=== PATIENT | female | born 1995 | race Caucasian/White ===

== ENCOUNTER 2019-03-24 09:00 | Emergency (ER) | payer OTHER, SELFPAY ==
[2019-03-24 09:05] VITALS: BP 121/66; PULSE 102; RESP 16; TEMP 36.9; O2SAT 100
--- NOTE | 2019-03-24 09:21 | ED.PSYCH ---
HPI - Psych General Chief Complaint: Psychiatric Symptoms Stated Complaint: evaluation Time Seen by Provider: 03/24/19 09:05 Source: patient and EMS Mode of arrival: EMS Limitations: no limitations History of Present Illness HPI Narrative: Ethel is a 23-year-old female patient. She presents to the emergency room by ambulance from her mother's home. The history is from the patient as well as from EMS. The patient was apparently with her boyfriend. She states that he can't drive out and she went to her mother's place. She has been using IV meth and also has been using fentanyl Says she snorted fentanyl and used IV meth She is not very clear about the exact time of use, vaguely says she used two buttons of fentanyl sometime this morning Meth use was 2 or 3 days ago She has a history of psychiatric problems. She has a diagnosis of PTSD, bipolar disorder, anxiety, depression. She saw Dr. Anthony Tong in [place], [place] about 3 days ago. She has been hospitalized in psychiatric institution in the past and she is not very clear about exactly when this was. She has no physical complaints. She states that she is hungry and wants to eat. Denies nausea vomiting, abdominal pain chest pain cough fever . She apparently had expressed suicidal as well as homicidal ideation to EMS. she has not actually hurt anyone. She has not not actually tried to hurt herself either. However she has ideation. MD complaint: suicidal ideation and feels depressed Onset (ago): day(s) ( See HPI narrative) Duration: constant History of same: Yes Relieving factors: none Exacerbating factors: other ( unknown) Context: recent drug abuse and other ( see HPI narrative) Associated psychiatric symptoms: depression, suicidal ideation and homicidal ideation Associated symptoms: other ( Denies headache. Denies shortness of breath. There is no abdominal pain. No nausea or vomiting. Denies dizziness.) Treatments prior to arrival: none If self harm: admits thoughts of self harm Details of plan: No plan Related Data Home Medications Medication Instructions Recorded Confirmed clonazepam [Klonopin] 1 mg PO HS 03/24/19 03/24/19 dextroamphetamine-amphetamine 20 mg PO BID 03/24/19 03/24/19 [Adderall] ziprasidone HCl [Geodon] 20 mg PO BID 03/24/19 03/24/19 Allergies Allergy/AdvReac Type Severity Reaction Status Date / Time Penicillins Allergy Unknown Verified 03/24/19 09:33 Review of Systems Review of Systems: All systems reviewed & are unremarkable except as noted in HPI and below Constitutional: Constitutional: Reports as per HPI, Reports no additional constitutional complaints, Denies chills and Denies fever(s) Eyes: Eyes: Reports as per HPI, Denies change in vision and Denies photophobia ENT: Reports system reviewed and no additional complaints, except as documented, Denies dysphagia, Denies vertigo, Denies dizziness, Denies nasal congestion and Denies sore throat Cardiovascular: Cardiovascular: Reports as per HPI, Reports no additional cardiovascular complaints, Denies chest pain and Denies radiating jaw, neck or arm pain Respiratory: Respiratory: Reports as per HPI, Reports no additional respiratory complaints, Denies chest congestion, Denies cough, Denies dyspnea and Denies wheezing Gastrointestinal: Gastrointestinal: Reports as per HPI, Reports no additional gastrointestinal complaints, Denies abdominal pain, Denies diarrhea, Denies nausea and Denies vomiting Comments: Ethel is hungry and wants to eat Genitourinary: Genitourinary: Reports no additional female genitourinary complaints, Denies hematuria and Denies dysuria Musculoskeletal: Musculoskeletal: Reports no additional musculoskeletal complaints, Denies back pain and Denies muscle cramps Integumentary/Breasts: Skin/Breast: Reports system reviewed and no additional complaints, except as docu and Reports rash Comments: has some rashes on face which are chronic according to her Ne
--- NOTE | 2019-03-24 09:35 | ECG_ITS ---
Measurements Intervals Talent Rate: 81 P: 92 NH: 149 QRS: 66 QRSD: 90 T: 43 QT: 387 QTc: 450 Interpretive Statements SINUS RHYTHM MINIMAL Q WAVES- INFERIOR LEADS BASELINE ARTIFACT- AVL, V6 BORDERLINE ECG Electronically Signed On 03-24-2019 11:29:16 MOTOR COACH DRIVER by Ed Boogie D.O.
[2019-03-24 09:39] LABS: Basophils Absolute Auto 0.05 K/mm3 (0.00-0.10); Basophils Percent Auto 0.4 % (0.0-1.0); Eosinophils Absolute Auto 0.22 K/mm3 (0.02-0.50); Eosinophils Percent Auto 1.9 % (1.0-6.0); Hematocrit 40.6 % (35.0-49.0); Hemoglobin 13.6 g/dL (12.0-15.0); Immature Granulocyte Absolute 0.02 K/mm3 (0.00-0.00); Immature Granulocyte Percent A 0.2 % (0.0-0.0); Mean Corpuscular HGB Conc 33.5 g/dL (32.0-36.0); Mean Corpuscular Hemoglobin 29.4 pg (27.0-31.0); Mean Corpuscular Volume 87.9 fL (78.0-102.0); Mean Platelet Volume 9.7 fl (9.2-11.8); Monocytes Absolute Auto 0.65 K/mm3 (0.10-0.90); Monocytes Percent Auto 5.6 % (2.0-11.0); Neutrophils Absolute Auto 6.7 K/mm3 (1.7-7.2); Neutrophils Percent Auto 56.9 % (50.0-70.0); Platelet Count Result 205 K/mm3 (150-420); Red Blood Count 4.62 M/mm3 (4.20-5.40); Red Cell Distribution Width 11.9 % (11.6-14.4); White Blood Count 11.7 K/mm3 (4.8-10.8)
[2019-03-24 09:50] LABS: Prothrombin Time 10.4 Seconds (9.64-11.0)
[2019-03-24 10:02] LABS: Alanine Aminotransferase 109 U/L (14-59); Albumin Level 3.6 g/dL (3.4-5.0); Alkaline Phosphatase 53 U/L (46-116); Anion Gap 12.5 mmol/L (7-16); Aspartate Amino Transferase 47 U/L (15-37); Bilirubin,Total 0.2 mg/dL (0.00-1.00); Blood Urea Nitrogen 9 mg/dL (7-18); Calcium 8.9 mg/dL (8.5-10.1); Carbon Dioxide 29 mmol/L (21-32); Chloride 103 mmol/L (98-108); Estimated CRCL calculation 79 ml/min; Estimated Glomerular Filt Rate > 60; Glucose 76 mg/dL (70-99); Magnesium 1.5 mg/dL (1.8-2.4); Osmolality Calculated 289 mOsm/kg (285-295); Potassium 3.5 mmol/L (3.5-5.1); Salicylate 1.5 mg/dL (2.8-20.0); Sodium 141 mmol/L (136-145); Thyroid Stimulating Hormone 1.95 uIU/mL (0.36-3.74); Total Protein 7.6 g/dL (6.4-8.2)
[2019-03-24 10:03] LABS: Ethanol < 3 mg/dL (0-6)
[2019-03-24 10:04] LABS: Acetaminophen 0 ug/mL (10-30)
--- NOTE | 2019-03-24 10:10 | PC.NURSE ---
Pt. eating breakfast tray.
[2019-03-24] MEDS: NICOTINE (*PBKC) 14 MG PATCH 1 PATCH TRANSDERM (10:14)
[2019-03-24 10:27] LABS: Add Urine Microscopic? NO; Appearance Urine Clear (Clear); Bilirubin Urine Negative (Negative); Blood Urine Negative (Negative); Color Urine Yellow (Yellow); Glucose Urine UA Negative (Negative); Ketones Urine Negative (Negative); Leukocyte Esterase Ur Negative LEU/UL (Negative); Nitrate Urine Negative (Negative); Protein Urine Negative (Negative); Urobilinogen Urine 0.2 mg/dL (0.2-1.0)
--- NOTE | 2019-03-24 10:29 | PC.NURSE ---
Call placed to [facility] for mental health eval and consult. Report given to Carmen, will send counselor when available.
[2019-03-24 10:32] LABS: Pregnancy On Board Control Negative; Urine Pregnancy Test Negative
[2019-03-24 10:36] LABS: Amphetamine Screen Urine Positive (Negative); Barbiturate Screen Urine Negative (Negative); Benzodiazepines Screen Urine Negative (Negative); Cannabinoid Screen Urine Negative (Negative); Cocaine Screen Urine Negative (Negative); Methadone Screen Urine Negative (Negative); Opiate Screen Urine Negative (Negative); Phencyclidine Screen Urine Negative (Negative)
--- NOTE | 2019-03-24 10:43 | PCDIET ---
Pt. resting c lights off, sitter at bedside. Report given to Veronica Ford
--- NOTE | 2019-03-24 11:00 | PC.NURSE ---
PT CARE IS ASSUMED AT THIS TIME. PT IS SLEEPING, SITTER AT BEDSIDE.
--- NOTE | 2019-03-24 13:00 | PC.NURSE ---
[facility] SENIOR MANAGEMENT CONSULTANT AT BEDSIDE FOR INTERVIEW
[2019-03-24 13:10] VITALS: BP 112/68; PULSE 82; RESP 14; O2SAT 98
--- NOTE | 2019-03-24 13:58 | PC.NURSE ---
PT HAS BEEN RELEASED FROM [facility] TO HOME WITH SAFETY PLAN. MOTHER MINNIE CALLED AND SHE WILL BE HERE TO EXTENSION COURSE COUNSELOR AT 5 PM [phone]
[2019-03-24 15:35] VITALS: BP 107/69; PULSE 81; RESP 16; O2SAT 98
[2019-03-26 12:56] LABS: HIV 1 P24 AG Negative (Negative); HIV 1/2 AB Negative (Negative)
[2019-03-31 04:31] LABS: Hepatitis B Surface Antigen Nonreactive (Nonreactive); Hepatitis C Additional Testing Has been added; Hepatitis C Virus Antibody Reactive (Nonreactive)
[2019-04-01 20:26] LABS: Hepatitis C Viral RNA PCR 85300 IU/mL
== END 2019-03-24 15:35 | disposition home or self-care (01) ==
PROVIDERS: Emergency Provider Surgery; PCP Family Medicine
DX: R45.851 Suicidal ideations (principal); F32.9 Major depressive disorder, single episode, unspecified
CPT/HCPCS: 36415; 80053; 80307; 81003; 81025; 83735; 84443; 85025; 85610; 85730; 86703; 93005; 99283; 99284; A9270

== ENCOUNTER 2020-05-12 10:40 | Emergency (ER) | payer OTHER, SELFPAY ==
[2020-05-12 10:40] VITALS: BP 112/73; PULSE 107; RESP 18; TEMP 36.4; O2SAT 97
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
[2020-05-12 10:57] LABS: Basophils Absolute Auto 0.07 K/mm3 (0.00-0.10); Basophils Percent Auto 0.5 % (0.0-1.0); Eosinophils Absolute Auto 0.08 K/mm3 (0.02-0.50); Eosinophils Percent Auto 0.6 % (1.0-6.0); Hematocrit 36.1 % (35.0-49.0); Hemoglobin 12.5 g/dL (12.0-15.0); Immature Granulocyte Absolute 0.03 K/mm3 (0.00-0.00); Immature Granulocyte Percent A 0.2 % (0.0-0.0); Lymphocytes Percent Auto 22.8 % (18.0-42.0); Mean Corpuscular HGB Conc 34.6 g/dL (32.0-36.0); Mean Corpuscular Hemoglobin 29.7 pg (27.0-31.0); Mean Corpuscular Volume 85.7 fL (78.0-102.0); Mean Platelet Volume 9.9 fl (9.2-11.8); Monocytes Absolute Auto 0.87 K/mm3 (0.10-0.90); Monocytes Percent Auto 6.6 % (2.0-11.0); Neutrophils Absolute Auto 9.1 K/mm3 (1.7-7.2); Neutrophils Percent Auto 69.3 % (50.0-70.0); Platelet Count Result 211 K/mm3 (150-420); Red Blood Count 4.21 M/mm3 (4.20-5.40); Red Cell Distribution Width 12.1 % (11.6-14.4); White Blood Count 13.2 K/mm3 (4.8-10.8)
[2020-05-12 11:18] LABS: Acetaminophen < 2 ug/mL (10-30); Alanine Aminotransferase 54 U/L (14-59); Albumin Level 3.7 g/dL (3.4-5.0); Alkaline Phosphatase 47 U/L (46-116); Anion Gap 13 mmol/L (8-16); Aspartate Amino Transferase 45 U/L (15-37); Bilirubin,Total 0.5 mg/dL (0.00-1.00); Blood Urea Nitrogen 22 mg/dL (7-18); Carbon Dioxide 24 mmol/L (21-32); Chloride 102 mmol/L (98-108); Estimated Glomerular Filt Rate > 60; Ethanol < 3 mg/dL (0-6); Glucose 77 mg/dL (70-99); Osmolality Calculated 290 mOsm/kg (285-295); Potassium 3.1 mmol/L (3.5-5.1); Sodium 139 mmol/L (136-145); Thyroid Stimulating Hormone 0.86 uIU/mL (0.36-3.74); Total Protein 7.4 g/dL (6.4-8.2)
[2020-05-12 11:19] LABS: Salicylate 2.1 mg/dL (2.8-20.0)
--- NOTE | 2020-05-12 11:31 | ECG_ITS ---
Measurements Intervals Bath Rate: 94 P: 79 RI: 145 QRS: 73 QRSD: 85 T: 63 QT: 356 QTc: 447 Interpretive Statements SINUS RHYTHM MINIMAL Q WAVES- INF/LAT LEADS BORDERLINE T WAVE ABNORMALITY- ANTERIOR LEADS BORDERLINE ECG Electronically Signed On 05-12-2020 11:55:12 CDT by Ed Boogie D.O.
[2020-05-12 13:05] LABS: Appearance Urine Clear (Clear); Bilirubin Urine Negative (Negative); Color Urine Yellow (Yellow); Glucose Urine UA Negative (Negative); Ketones Urine 3+ (Negative); Leukocyte Esterase Ur Negative LEU/UL (Negative); Nitrate Urine Negative (Negative); Protein Urine Negative (Negative); Specific Grav Ur >= 1.030 (1.010-1.020); Urobilinogen Urine 0.2 mg/dL (0.2-1.0); pH Urine 5.5 (5.0-8.0)
[2020-05-12 13:12] LABS: Add Urine Microscopic? YES; Bacteria Urine Trace /hpf; Blood Urine Trace-Lysed (Negative); RBC Urine 0-2 /hpf (0-2); Squamous Epithelial Cell Urine None seen /hpf (Few); WBC Urine 0-3 /hpf (0-3)
[2020-05-12 13:18] LABS: Amphetamine Screen Urine Positive (Negative); Barbiturate Screen Urine Negative (Negative); Benzodiazepines Screen Urine Positive (Negative); Cannabinoid Screen Urine Negative (Negative); Cocaine Screen Urine Negative (Negative); Methadone Screen Urine Negative (Negative); Opiate Screen Urine Negative (Negative); Phencyclidine Screen Urine Negative (Negative)
[2020-05-12] MEDS: diphenhydrAMINE HCl INJ 50 MG/ML VIAL IM (13:30)
[2020-05-12] MEDS: LORazepam INJ (*CRX) 2 MG/ML VIAL IM (13:30)
[2020-05-12] MEDS: HALOPERIDOL LACTATE 5 MG/ML VIAL IM (13:30)
--- NOTE | 2020-05-12 15:02 | PC.NURSE ---
[id number] CONTACTED FOR PSYCH EVAL. AWAITING CALL BACK.
--- NOTE | 2020-05-12 15:52 | PC.NURSE ---
[facility] HAND DRILLER, WAI, ARRIVED FOR ASSESSMENT AT 1530
[2020-05-12 19:25] VITALS: BP 126/83; PULSE 86; RESP 20; TEMP 36.8; O2SAT 97
--- NOTE | 2020-05-12 19:44 | PC.NURSE ---
pt awakened per nurse. vitals stable. restraints released at 1914. pt ambulated to bathroom. legs washed to remove mud. pt currently menustrating. wipes given to clean self up. noted pt removing soft plastic multicolored container from vagina. pt stated it is pure heroin, i dont want to go to skilled nursing . container placed in plastic biohazard bag. will give to sole splitter department staff when pt discharged. pt returned to room , resting per cot. warm blankets applied. 1929 call placed to [facility] for crisis eval. pt denies being suicidal, homicidal. pt denies taking any pills as reported by boyfriend.
--- NOTE | 2020-05-12 20:14 | PC.NURSE ---
pt sleeping, resp even and unlabored. lights dimmed. continuous observation per security professionals in room.
[2020-05-12 20:31] VITALS: BP 129/87; PULSE 84; RESP 20; O2SAT 97
[2020-05-12 21:31] VITALS: BP 126/84; PULSE 79; RESP 20; O2SAT 97
--- NOTE | 2020-05-12 21:32 | PC.NURSE ---
pt sleeping, repositions self in cot. remains in direct vision per security systems administrator per RN.
--- NOTE | 2020-05-12 23:42 | PC.NURSE ---
[facility] notified of pending discharge. awaiting call back from deputy.
--- NOTE | 2020-05-13 00:16 | PC.NURSE ---
[facility] department returned call. deputy will be enroute to meat pickler pt. pt sleeping. arouses when spoken to.
[2020-05-13 00:33] VITALS: BP 106/68; PULSE 84; RESP 20; O2SAT 98
--- NOTE | 2020-05-13 00:43 | PC.NURSE ---
0025 deputy tang here from [facility]. 0040 pt signed discharge instructions and placed in handcuffs. pt wide awake and ambulatory out to emulsion coater vehicle with jamesonutmallorie and RN. pt alert and stable. alert to self and surroundings. personal shoes and plastic container mentioned earlier sent with deputy. pt placed self in back of emulsion coater vehicle.
== END 2020-05-13 00:40 ==
PROVIDERS: Emergency Provider Family Medicine
DX: F15.129 Other stimulant abuse with intoxication, unspecified (principal)
CPT/HCPCS: 36415; 51701; 80053; 80307; 81001; 84443; 85025; 93005; 96372; 99283; 99284; J1200; J1630; J2060

== ENCOUNTER 2023-09-03 12:00 | Emergency (ER) | payer OTHER, SELFPAY ==
[2023-09-03 12:00] VITALS: BP 120/85; PULSE 100; RESP 15; TEMP 36.6; O2SAT 100
--- NOTE | 2023-09-03 12:13 | ED.FEMALEGU ---
HPI - Female Genitourinary General Chief complaint: Urogenital-Female Stated complaint: UTI symptoms Time Seen by Provider: 09/03/23 12:12 Source: patient Mode of arrival: ambulatory Limitations: no limitations History of Present Illness HPI Narrative: 28 year old female presents to the Emergency Department complaining of UTI. States symptoms began several days ago. She has history of frequent UTI's and feels same. Complains of dysuria and frequency. Denies back pain, fever, nausea, vomiting or diarrhea. MD elicited complaint: dysuria and UTI Pertinent past history: recurrent UTIs Onset (ago): day(s) Severity: moderate Urinary symptoms: Dysuria, Urgency and Frequency Exacerbating factors: none Relieving factors: none Related Data Allergies Allergy/AdvReac Type Severity Reaction Status Date / Time Penicillins Allergy Unknown Verified 09/03/23 12:18 Review of Systems Review of Systems: All systems reviewed & are unremarkable except as noted in HPI and below Constitutional: Constitutional: Reports as per HPI, Denies chills and Denies fatigue Eyes: Eyes: Reports as per HPI ENT: Reports system reviewed and no additional complaints, except as documented Cardiovascular: Cardiovascular: Reports as per HPI Respiratory: Respiratory: Reports as per HPI Gastrointestinal: Gastrointestinal: Reports as per HPI, Denies diarrhea, Denies nausea and Denies vomiting Genitourinary: Genitourinary: Reports no additional female genitourinary complaints, Reports nocturia and Reports dysuria Musculoskeletal: Musculoskeletal: Reports no additional musculoskeletal complaints Neurologic: Reports system reviewed and no additional complaints, except as documented PMFSH Past Medical History Medical History Anxiety Bipolar affect, depressed Depression Drug abuse PTSD (post-traumatic stress disorder) Surgical History Surgical History No history of previous surgery Social History Social History Additional smoking assessment comments: smokes 1 pack per day. Alcohol use details: Denies alcohol use Substance use: current Substance use type: opiates and methamphetamine Other substance usage details: fentanyl Exam Const: General: healthy appearing Nutritional Appearance: well nourished Orientation/consciousness: patient oriented x3 Limitations: no limitations HENMT: Head: normal to inspection Ears: external ears normal Face/Nose/Sinus: Normal external nose present Face and sinus: normal facial exam Eyes: Conjunctivae: conjunctivae normal Pupils: Equal, round and reactive pupils present EOM: EOMs intact bilaterally Direct Ophthalmoscopy: no photophobia Neck: Neck: normal visual inspection Chest: Chest palpation & inspection: normal inspection of the chest Resp: Effort & Inspection: normal respiratory effort Auscultation: clear to auscultation bilaterally Cardio: Rate: regular rate Rhythm: regular rhythm GI: Inspection: non-distended GI Palp: Yes Soft to palpation and No Tenderness to palpation present (GI) : General: Yes no CVA tenderness Back/Spine/Pelvis: Back: no CVA tenderness Skin: General skin exam: normal color Rashes: no rashes Wounds: no wounds Neuro: General: patient oriented x3 Speech: normal speech Gait exam (Neuro): Normal gait present Other: grossly normal Extrem: General: normal to inspection Psych: Appearance: grossly normal Course Course Emergency Course: 28 y/o female presents to the ED c/o UTI symptoms. Onset several days ago. Hx frequent UTI's. Feels same. PE: no acute findings UA: >75 wbc, 2+ LE, 21-50 rbc, 3+ blood, 3+ prot, 1+ urobili UPreg: negative *reviewed and discussed results with patient. Discussed further management. Patient voices understanding and agreement. Rx and Instruction
--- NOTE | 2023-09-03 12:20 | PC.NURSE ---
Patient ambulatory down to bathroom to obtain urine sample
[2023-09-03 12:29] LABS: Appearance Urine Clear (Clear); Bilirubin Urine 1+ (Negative); Blood Urine 3+ (Negative); Glucose Urine UA Negative (Negative); Ketones Urine Negative (Negative); Leukocyte Esterase Ur 2+ (Negative); Nitrate Urine Negative (Negative); Protein Urine 3+ (Negative); Specific Grav Ur >= 1.030 (1.010-1.020)
[2023-09-03 12:32] LABS: Pregnancy On Board Control Positive; Urine Pregnancy Test Negative
[2023-09-03 12:35] LABS: Add Urine Microscopic? YES; Bacteria Urine Trace /hpf; Color Urine Dark Amber (Yellow); RBC Urine 21-50 /hpf (0-2); Squamous Epithelial Cell Urine Few /hpf (Few); WBC Urine >75 /hpf (0-3)
[2023-09-03 13:01] VITALS: BP 118/80; PULSE 85; RESP 16; TEMP 36.6; O2SAT 100
== END 2023-09-03 13:01 | disposition home or self-care (01) ==
PROVIDERS: Emergency Provider Emergency Medicine
DX: N39.0 Urinary tract infection, site not specified (principal); F17.210 Nicotine dependence, cigarettes, uncomplicated
CPT/HCPCS: 81001; 81025; 99283

== ENCOUNTER 2024-09-01 06:25 | Emergency (ER) | payer OTHER, SELFPAY ==
[2024-09-01 06:25] VITALS: BP 118/64; PULSE 90; RESP 18; TEMP 36.6; O2SAT 99
--- OUTSIDE RECORDS SUMMARY | 2024-09-01 06:28 | XMS_ITS | Patient Health Record ---
Author Organization [facility] Address [address] [place] [address] Care Team Providers Care Student Life Dean Name Role Phone Jayne Barney Primary Care Provider [phone] Reason For Referral No Information Medications Medication SIG (Take, Route, Fr equency, Duration) Notes Start Date End Date Status Multivitamin - as directed Orally Active Geodon 20 MG 1 capsule with food Orally once daily Active Adderall 20 MG 1 tablet Orally Twice a day Active clonazePAM 1 MG 1 tablet Orally Once a day Active Acetaminophen 500 MG 1 capsule as needed Orally every 6 hrs Active Suboxone 4-1 MG 1 film under the ton brian and allow to dissolve Sublingual Once a day Active Social History Tobacco Use: Social History Observation Description Date Details (start date - stop date) Current Smoker NA - NA Sex Assigned At : Social History Observation Description Sex Assigned At Female Dont use, Tobacco Use/Smoking Question Answer Notes Are you a current smoker How often do you smoke cigarettes? every day How many cigarettes a day do you smoke? 11-20 How soon after you wake up do you smoke your fir st cigarette? 6-30 minutes Plan Of Treatment No Information Insurance Providers Payer Name Payer Address Payer Phone Subscriber Number Group Number Insured Name Patient Relationship to Insured Coverage Start Date Coverage End Date [facility] [address] [place] [address] [id number] Ethel Diallo Self - patient is the insured 0 Medical (General) History Medical History History ICD Code hep c - 2018 Surgical History Surgery Date(Month/Year) Hospitalization History Reason Date(Month/Year) Suicide Attempt 12/2016 Detox inpatient 03/25/2019
--- NOTE | 2024-09-01 06:29 | ED.WOUNDLAC ---
HPI - Wound/Laceration General Chief Complaint: Wound/Laceration Stated Complaint: LACERATION INJURY Time Seen by Provider: 09/01/24 06:28 Source: patient Mode of arrival: ambulatory Limitations: no limitations History of Present Illness HPI narrative: patient is a 29-year-old female with a left middle finger extensor surface laceration done in the past hour. She was using an old knife and cutting rags. She accidentally cut herself during the making of rags. This was an accident. Patient needs a tetanus shot. Onset (ago): hour(s) ( One) Location: other ( left middle finger) Place: home Patient tetanus UTD: No Context: accidental Associated symptoms: none Treatments prior to arrival: bandage Related Data Allergies Allergy/AdvReac Type Severity Reaction Status Date / Time Penicillins Allergy Unknown Verified 09/01/24 06:46 Review of Systems Review of Systems: All systems reviewed & are unremarkable except as noted in HPI and below Constitutional: Constitutional: Reports no additional constitutional complaints Eyes: Eyes: Reports no additional eye complaints ENT: Reports system reviewed and no additional complaints, except as documented Cardiovascular: Cardiovascular: Reports no additional cardiovascular complaints Respiratory: Respiratory: Reports no additional respiratory complaints Gastrointestinal: Gastrointestinal: Reports no additional gastrointestinal complaints Genitourinary: Genitourinary: Reports no additional female genitourinary complaints Musculoskeletal: Musculoskeletal: Reports no additional musculoskeletal complaints Integumentary/Breasts: Skin/Breast: Reports system reviewed and no additional complaints, except as docu Neurologic: Reports system reviewed and no additional complaints, except as documented Psychiatric: Psychiatric: Reports no additional psychiatric complaints Endocrine: Endocrine: Reports no additional endocrine complaints Hematologic/Lymphatic: Hematologic/Lymphatic: Reports no additional hematologic/lymphatic complaints Allergic/Immunologic: Allergic/Immunologic: Reports no additional allergic/immunologic complaints [facility] Past Medical History Medical History Drug abuse PTSD (post-traumatic stress disorder) Bipolar affect, depressed Depression Anxiety Surgical History Surgical History No history of previous surgery Social History Social History Additional smoking assessment comments: smokes 1 pack per day. Alcohol use details: Denies alcohol use Substance use: current Substance use type: opiates and methamphetamine Other substance usage details: fentanyl Exam Const: General: healthy appearing Nutritional Appearance: well nourished Orientation/consciousness: patient oriented x3 HENMT: Head: normal to inspection Ears: external ears normal Face/Nose/Sinus: Normal external nose present Eyes: Conjunctivae: conjunctivae normal Pupils: Equal, round and reactive pupils present EOM: EOMs intact bilaterally Neck: Neck: normal visual inspection Chest: Chest palpation & inspection: normal inspection of the chest Resp: Effort & Inspection: normal respiratory effort and not labored Auscultation: clear to auscultation bilaterally and no crackles Cardio: Rate: regular rate Rhythm: regular rhythm Heart sounds: no murmurs Skin: General skin exam: normal color Rashes: no rashes Wounds: wound noted Other: left middle finger extensor surface has a 0.5 flap laceration without bleeding or infection Neuro: General: patient oriented x3 Cranial nerves: Yes Nystagmus not present Speech: normal speech Gait exam (Neuro): Normal gait present Extrem: General: normal to inspection Psych: Mental Status: mental status grossly normal Affect: normal affect Attitude: cooperative Course Vital Signs Vital signs: Vital Signs Temperature 36.6 C 09/01/24 06:25 Pulse Rate 90 09/01/24 06:25 Respiratory Rate 18 09/01/24 06:25 Blood Pressure 118/64 09/01/24 06:25 Pulse Oximetry 99 09/01/24 06:25 Oxygen Delivery Room Air 09/01/24 06:25 Temperature 36.6 C 09/01/24 06:25 Pulse Rate 90 09/01/24 06:25 Respiratory Rate 18 09/01/24 06:25 Blood Pressure 118/64 09/01/24 06:25 Pulse Oximetry 99 09/01/24 06:25 Oxygen Delivery Room Air 09/01/24 06:25 Procedures Other Procedure Procedure 1: Other Procedure: Dermabond placed on left middle finger extensor surface laceration MDM - Wound/Laceration MDM Narrative Medical decision making narrative: patient is a 29-year-old female with a left middle finger extensor surface laceration prior to arrival. We will give a tetanus shot. We will clean the area and placed Dermabond. We will use a finger splint. Discharge Plan Discharge Clinical Impression: Finger laceration Qualifiers: Encounter type: initial encounter Finger: middle finger Damage to nail status: without damage Foreign body presence: without foreign body Laterality: left Qualified Code(s): S61.213A - Laceration without foreign body of left middle finger without damage to nail, initial encounter Patient Disposition: Home Condition: Stable Instructions: Laceration (ED), Skin Adhesive Care (ED) Patient Language: Pakistani Prescriptions: No Action sulfamethoxazole-trimethoprim [Bactrim DS] 800-160 mg tablet 1 tablet PO Q12H Qty: 20 0RF phenazopyridine [Pyridium] 200 mg tablet 200 mg PO TID PRN (Reason: pain) Qty: 10 0RF Follow-up/Referrals: UNKNOWN,DOCTOR [Primary Care Provider] - Time of Disposition: 06:44
[2024-09-01] MEDS: TETANUS,DIPHTHERIA,AC PERTUSSIS ADULT 0.5 ML (ADACEL) IM (06:43)
--- NOTE | 2024-09-01 06:52 | PC.NURSE ---
FINGERSPLINT PLACED TO LEFT HAND, THIRD DIGIT. PATIENT WAS EDUCATED ON HOW TO PUT ON SPLINT AND TAKE OFF USING COBAN. PATIENT VERBALIZED UNDERSTANDING
== END 2024-09-01 06:54 | disposition home or self-care (01) ==
PROVIDERS: Emergency Provider Emergency Medicine
DX: S61.213A Laceration without foreign body of left middle finger without damage to nail, initial encounter (principal); Z23 Encounter for immunization; W26.0XXA Contact with knife, initial encounter; Y92.009 Unspecified place in unspecified non-institutional (private) residence as the place of occurrence of the external cause
CPT/HCPCS: 12001; 90471; 90715; 99282

== ENCOUNTER 2024-10-24 15:02 | Emergency (ER) | payer OTHER, SELFPAY ==
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
[2024-10-24 15:07] VITALS: BP 127/89; PULSE 121; RESP 20; TEMP 36.7; O2SAT 96
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
[2024-10-24 15:31] LABS: Add Urine Microscopic? NO; Appearance Urine Clear (Clear); Glucose Urine UA Negative (Negative); Leukocyte Esterase Ur Negative LEU/UL (Negative); Nitrate Urine Negative (Negative); Specific Grav Ur >= 1.030 (1.010-1.020)
[2024-10-24 15:34] LABS: Pregnancy On Board Control Positive
[2024-10-24 15:48] LABS: Cannabinoid Screen Urine Negative (Negative)
[2024-10-24 16:03] VITALS: BP 127/89; PULSE 121; RESP 20; TEMP 36.7; O2SAT 96
== END 2024-10-24 16:03 | disposition home or self-care (01) ==
PROVIDERS: Emergency Provider Emergency Medicine; Referring Provider Family Medicine
DX: T74.31XA Adult psychological abuse, confirmed, initial encounter (principal); F15.10 Other stimulant abuse, uncomplicated; Z20.2 Contact with and (suspected) exposure to infections with a predominantly sexual mode of transmission; F17.210 Nicotine dependence, cigarettes, uncomplicated; X58.XXXA Exposure to other specified factors, initial encounter
CPT/HCPCS: 80307; 81003; 81025; 87491; 87591; 99284

== ENCOUNTER 2024-11-10 23:15 | Emergency (ER) | payer OTHER, SELFPAY ==
[2024-11-10 23:17] VITALS: BP 146/89; PULSE 82; RESP 20; TEMP 36.5; O2SAT 100
--- NOTE | 2024-11-10 23:18 | ED_ITS ---
HPI - Dental/Oral General Chief complaint: Dental/Oral Stated complaint: toothache Time Seen by Provider: 11/10/24 23:17 Source: patient Mode of arrival: ambulatory History of Present Illness HPI Narrative: 29-year-old with a history of above dental caries presents to the ER with complaints of dental pain for the last 6 months however tonight it got worse. Denies any fever chills. History of opiate use in the past. Related Data Allergies Allergy/AdvReac Type Severity Reaction Status Date / Time Penicillins Allergy Unknown Verified 10/24/24 15:15 Review of Systems Review of Systems: All systems reviewed & are unremarkable except as noted in HPI and below Constitutional: Constitutional: Reports no additional constitutional complaints Eyes: Eyes: Reports no additional eye complaints ENT: Reports system reviewed and no additional complaints, except as documented Cardiovascular: Cardiovascular: Reports no additional cardiovascular complaints Respiratory: Respiratory: Reports no additional respiratory complaints Gastrointestinal: Gastrointestinal: Reports no additional gastrointestinal complaints Genitourinary: Genitourinary: Reports no additional female genitourinary complaints Musculoskeletal: Musculoskeletal: Reports no additional musculoskeletal complaints Integumentary/Breasts: Skin/Breast: Reports system reviewed and no additional complaints, except as docu PMFSH Past Medical History Medical History Drug abuse PTSD (post-traumatic stress disorder) Bipolar affect, depressed Depression Anxiety Surgical History Surgical History No history of previous surgery Social History Social History Additional smoking assessment comments: smokes 1 pack per day. Alcohol use details: Denies alcohol use Substance use: current Substance use type: opiates and methamphetamine Other substance usage details: fentanyl Exam Narrative: GENERAL: Well-appearing, well-nourished, and in no acute distress. HEAD: Normocephalic, atraumatic. EYES: PERRLA and EOMI. ENT: Nares clear, no rhinorrhea or epistaxis. Mucous membranes moist. Multiple dental caries NECK: Supple. CHEST: Clear to auscultation. No respiratory distress. HEART: Regular rate and rhythm. No murmur heard. Normal peripheral pulses. EXTREMITIES: Normal range of motion. No edema. SKIN: Warm, dry, no rash. NEURO: No focal deficits. Alert and oriented x3. PSYCH: Normal mood and affect. Course Vital Signs Vital signs: Vital Signs Temperature 36.5 C 11/10/24 23:17 Pulse Rate 82 11/10/24 23:17 Respiratory Rate 11/10/24 23:17 Blood Pressure 146/89 H 11/10/24 23:17 Pulse Oximetry 100 11/10/24 23:17 Oxygen Delivery Room Air 11/10/24 23:17 Temperature 36.5 C 11/10/24 23:17 Pulse Rate 82 11/10/24 23:17 Respiratory Rate 11/10/24 23:17 Blood Pressure 146/89 H 11/10/24 23:17 Pulse Oximetry 100 11/10/24 23:17 Oxygen Delivery Room Air 11/10/24 23:17 Discharge Plan Discharge Clinical Impression: Chronic dental pain Patient Disposition: Home Condition: Stable Instructions: Toothache (ED) Additional Instructions: take antibiotics as prescribed , follow with a dentist Patient Language: Liberian Prescriptions: New clindamycin HCl [Cleocin HCl] 300 mg capsule 300 mg PO Q6H Qty: 21 0RF ibuprofen 600 mg tablet 600 mg PO TID PRN (Reason: pain) Qty: 30 0RF No Action sulfamethoxazole-trimethoprim [Bactrim DS] 800-160 mg tablet 1 tablet PO Q12H Qty: 20 0RF phenazopyridine [Pyridium] 200 mg tablet 200 mg PO TID PRN (Reason: pain) Qty: 10 0RF Follow-up/Referrals: Geovanni Hernandez MD [Primary Care Provider, Internal Medicine] Time of Disposition: 23:20
[2024-11-10] MEDS: IBUPROFEN 600 MG TABLET PO (23:45)
--- NOTE | 2024-11-10 23:47 | PC.NURSE ---
PT ambulatory to bathroom at this time.
== END 2024-11-10 23:51 | disposition home or self-care (01) ==
LOC: CHSED 23:28
PROVIDERS: Emergency Provider Family Medicine; PCP Internal Medicine
DX: K08.89 Other specified disorders of teeth and supporting structures (principal); G89.29 Other chronic pain; F17.210 Nicotine dependence, cigarettes, uncomplicated
CPT/HCPCS: 99283; A9270